=== PATIENT | female | born 1995 | race Caucasian/White ===

== ENCOUNTER → 2021-06-08 | Emergency (ER) | payer OTHER ==
[~2021-06-08] VITALS: Ht 157.5 cm; Wt 68.2 kg
[~2021-06-08] MED LIST: AMOXICILLIN875 MG PO; OMNICEF 300MG300 MG PO; ZITHROMAX Z PA250 MG PO
[2021-06-08 13:32] LABS: MEAN CELL VOLUME 85 fl (80.0-100.0); MEAN CORPUSCULAR HEMOGLOBIN 28 pg (27-31); MEAN CORPUSCULAR HGB CONC 34 g/dl (33.0-37.0); MEAN PLATELET VOLUME 9.1 fl (7.4-10.4); PLATELET COUNT 217 K/mm3 (130-400); RED BLOOD COUNT 3.88 M/mm3 (4.10-5.30); REDCELL DISTRIBUTION WIDTH-CV 12.8 % (11.5-14.5)
[2021-06-08 13:43] LABS: HEMATOCRIT 32.8 % (37.0-47.0)
[2021-06-08 13:44] VITALS: BP 119/79; PULSE 116
[2021-06-08 13:51] LABS: ALBUMIN 3.3 gm/dL (3.5-5.0); CALCIUM 9.2 mg/dL (8.4-10.2); CREATININE, serum 0.65 mg/dL (0.57-1.11); POTASSIUM 3.9 mmol/L (3.5-4.5); TOTAL PROTEIN 6.8 gm/dL (6.2-8.1)
[2021-06-08 13:56] LABS: TROPONIN-I 0.01 ng/mL (0.00-0.033)
[2021-06-08 14:05] LABS: BAND 8 % (0-10); BILIRUBIN,TOTAL 0.4 mg/dL (0.2-1.2); LYMPHOCYTE 6 % (20.0-51.0); NEUTROPHILS 83 % (42.0-75.2); PLATELET ESTIMATE NORMAL (NORMAL)
[2021-06-08 14:06] LABS: ANISOCYTOSIS 1+; MICROCYTOSIS 1+
[2021-06-08 14:06] LABS: COLLECTION METHOD CLEAN CATCH
[2021-06-08 14:49] LABS: PH 7 (5-8); SQUAMOUS EPITHELIAL 0-2 /hpf (0-10); URINE APPEARANCE Clear (CLEAR/HAZY); URINE BACTERIA Rare /hpf (NONE SEEN); URINE BILIRUBIN Negative (NEGATIVE); URINE BLOOD Negative (NEGATIVE); URINE COLOR Colorless (YELLOW); URINE GLUCOSE 1+ (NEGATIVE); URINE KETONE Negative (NEGATIVE); URINE LEUKOCYTE ESTERASE Negative (NEGATIVE); URINE NITRATE Negative (NEGATIVE); URINE PROTEIN(semi-quant) Negative (NEGATIVE); URINE RBC None Seen /hpf (0-2); URINE UROBILINOGEN Negative (NEGATIVE)
[2021-06-08 15:10] VITALS: TEMP 97.4
== END ==
LOC: COL.ER 12:20
PROVIDERS: Emergency Medicine
DX: O99.512 Diseases of the respiratory system complicating pregnancy, second trimester (principal); J06.9 Acute upper respiratory infection, unspecified; O99.112 Other diseases of the blood and blood-forming organs and certain disorders involving the immune mechanism complicating pregnancy, second trimester; D72.829 Elevated white blood cell count, unspecified; Z88.2 Allergy status to sulfonamides; Z3A.15 15 weeks gestation of pregnancy; Z20.822 Contact with and (suspected) exposure to COVID-19

== ENCOUNTER 2021-11-21 07:39 | Inpatient (IN) | payer OTHER ==
[~2021-11-21] VITALS: Ht 157.5 cm; Wt 87.3 kg
[2021-11-23] MEDS ORDERED: WELLBUTRIN XL150 MG PO (11:36)
[2021-11-23] MEDS ORDERED: PRIL40 PO (11:36)
[2021-11-23] MEDS ORDERED: PRENATAL TABLET PO (11:37)
[2021-11-23] MEDS ORDERED: NATURAL IRON65 MG (11:37)
[2021-11-25] VITALS (62 sets, daily range): BP systolic 88–142; BP diastolic 43–95; PULSE 80–142; TEMP 97.8–98.7
[2021-11-25 08:15] LABS: BASO % 0.4 % (0.0-2.0); EOS # 0.2 K/mm3 (0.0-0.7); EOS % 1.9 % (0.0-4.0); GRAN # 6.1 K/mm3 (1.4-6.5); HEMATOCRIT 35.4 % (37.0-47.0); HEMOGLOBIN 11.6 g/dl (12.5-16.0); LYMPH # 1.5 K/mm3 (1.2-3.4); LYMPH % 18.3 % (20.0-51.0); MEAN CELL VOLUME 89 fl (80.0-100.0); MEAN CORPUSCULAR HEMOGLOBIN 29 pg (27-31); MEAN CORPUSCULAR HGB CONC 33 g/dl (33.0-37.0); MEAN PLATELET VOLUME 10.2 fl (7.4-10.4); MONO # 0.4 K/mm3 (0.1-0.6); MONO % 5.3 % (1.7-9.3); PLATELET COUNT 207 K/mm3 (130-400); RED BLOOD COUNT 3.96 M/mm3 (4.10-5.30); REDCELL DISTRIBUTION WIDTH-CV 16.4 % (11.5-14.5)
--- NOTE | 2021-11-25 17:23 | NUR ---
1328 NURSE CALLED INTO ROOM, PATIENT VOMITING. PATIENT CLEANED UP. 1645 SVE 6-7/90/-1 ZROFRAN GIVEN. PATIENT MORE COMFORTABLE AND PLACED INTO EDGAR POSITION.
--- NOTE | 2021-11-25 17:43 | NUR ---
0630 PATIENT ARRIVED ON UNIT, CHANGED INTO PERSONAL GOWN AND PLACED ON MONITORS. VITALS TAKEN. HEART RATE ELEVATED. PATIENT STATED SHE IS NERVOUS. WENT THROUGH EVERY THING AND ANSWERED ALL QUESTIONS FROM PATIENT AND FAMILY. PATIENT STATES SHE FEELS BETTER, PULSE STILL ELEVATED. PATIENT TEARFUL BUT WAS ABLE TO START IV. 0708 PATIENT STATED SHE DIDNT FEEL WELL. BLOOD PRESSURE TAKEN 70/43. PATIENT STATES THIS HAPPENS WHEN SHE IS NERVOUS. 0708 BLOOD PRESSURE BACK TO NORMAL 123/73 STATES SHE IS FEELING MUCH BETTER. CALL VIEAR AND PERSONAL ITEMS WITHIN REACH.
--- NOTE | 2021-11-25 18:06 | NUR ---
1011 ANESTHESIA AT THE BEDSIDE TO TALK ABOUT EPIDURAL AND MEDICATION THAT IS NEEDED BEFORE EPIDURAL FOR BLOOD DISORDER. SECOND IV PLACED FOR MEDICATION. 1023 DEMOPRESSIN STARTED TO RUN OVER 30 MINS. 1030 MD AND DUE DILIGENCE COORDINATOR CHANGED RATE TO RUN OVER 15 MINS. 1054 ANESTHESIA BACK AT THE BEDSIDE FOR EPIDURAL 1056 PATIENT SAT UP ON SIDE OF BED. PULSE OX TRACING MATERNAL HEART RATE. MOMENTS OF MONITOR TRACING MATERNAL HEART RATE DURING EPIDURAL PLACEMENT. 1106 TEST DOSE PATIENT TOLERATED WELL. VITALS Q 5 MIN STARTED. 1130 MD AT . SVE 3/-2. 1132 PATIENT PLACED ON LEFT SIDE WITH PEANUT BALL. 1200 MOHR PLACED. AND PATIENT PLACED ON RIGHT SIDE WITH PEANUT BALL.
--- NOTE | 2021-11-25 18:30 | NUR ---
1230 HEART RATE SHOWING LATE DECELS BLOOD PRESSURE 81/37 1238 EPHEDRINE GIVEN TO PATIENT 1250 2ND DOSE OF EPHEDRINE GIVEN 1253 ANESTHESIA AT THE BEDSIDE 1254 3RD DOSE OF EPHEDRINE GIVEN, FLUIDS INCREASED 1256 BLOOD PRESSURE 105/[address] [facility]. BLOOD PRESSURE BACK TO BASLINE.
--- NOTE | 2021-11-25 18:30 | NUR ---
1829- BEDSIDE REPORT RECEIVED CHARTED, CARE ASSUMED. PT IN LEFT LATERAL WITH STIRRUP, DENIES NEEDS AT THIS TIME. DISCUSSED PLAN FOR ANTIBIOTICS. 1899- PEN G INFUSING ORDERED. PT ASSISTED TO RIGHT LATERAL POSITION. PT EXPERIENCES NAUSEA WITH POSITION CHANGE, SO WILL LET HER RECOVER FROM THAT AND THEN CHECK CERVIX. 1914- NURSE TO BEDSIDE. PT FEELING BETTER. SVE BY THIS NURSE . BLOODY SHOW NOTED ON PERINEAL TOWEL. PERICARE PROVIDED.
--- NOTE | 2021-11-25 19:15 | NUR ---
1914- DR GOODWIN JUST OUT OF SURGERY AND UPDATED ON CURRENT SVE AND POSITION CHANGE. SHE VOICES CONCERN ABOUT SIZE OF BABY. 1939- DR GOODWIN TO BEDSIDE. SVE BY DR GOODWIN 10/100/CAPUT+2. SHE STATES THE CAPUT OF BABY'S HEAD IS +2 AND TO START PUSHING. 1999- MOHR CATHETER REMOVED FOR PUSHING. PERICARE PROVIDED. DISCUSSES PUSHING WITH PT AND FAMILY AND ANSWERED QUESTIONS ABOUT THE PROCESS. AXILLARY TEMP 98.7. 2007- PT POSITIONED IN FOOT PLATES AND BEGINS COACHED PUSHING WITH CONTRACTION. AFTER CONTRACTIONS, NURSE PERFORMS SVE AND NOTES CERVIX TO STILL BE PRESENT ALL THE WAY AROUND BABY'S HEAD, SVE 9/100/0. DR GOODWIN NOTIFIED AT DESK IMMEDIATELY. DR GOODWIN STATES THE CERVIX SHOULD BE REDUCEABLE AND GOES TO BEDSIDE. 2009- DR GOODWIN AT BEDSIDE. HAS PT PUSH WITH THIS CONTRACTION AND PERFORMS SVE DURING PUSHING WHERE SHE MANUALLY PUSHES THE CERVIX AROUND THE BABY'S HEAD. SHE INSTRUCTS NURSE AND PT TO CONTINUE PUSHING WITH CONTRACTIONS. 2021- DR GOODWIN AT BEDSIDE ASSESSING PT PROGRESS. SHE HAS A LENGTHY DISCUSSION WITH PT AND FAMILY AT THIS TIME ABOUT THE POSSIBILITY OF VACUUM DELIVERY. RISKS DISCUSSED AND QUESTIONS ANSWERED. 2034- DR GOODWIN AT BEDSIDE TO ASSESS PT PROGRESS. 2104- DR GOODWIN AT BEDSIDE. STATES PT FEELS HOT TO HER AND SHE THINKS BABY IS TACHYCARDIC. UPDATED ON TEMP AT 1999. DR GOODWIN WANTS ANOTHER TEMP, AXILLARY IT IS 100.3. SHE GIVES VERBAL ORDER FOR ANTIBIOTICS. SHE UPDATES PT AND FAMILY THAT SHE IS NOW CONSIDERING USING A VACUUM DUE TO BABY'S HEART RATE AND MOM'S TEMPERATURE. PT IS AGREEABLE WITH THIS PLAN IF NEEDED. BED IS BROKEN DOWN FOR DELIVERY AND CHARGE AND NURSERY ARE NOTIFIED. PT CONTINUES PUSHING WITH CONTRACTIONS. 2111- DR GOODWIN STATES SHE WILL NOT USE THE VACUUM BECAUSE SHE BELIEVES THE PT WILL BE ABLE TO DELIVER WITHOUT IT IN A COUPLE CONTRACTIONS. 2114- SVE OF VIABLE FEMALE WITH NUCHAL X1, TO MOTHER'S ABDOMEN AND CARE OF NURSERY STAFF. 2117- SPONTANEOUS DELIVERY OF PLACENTA, EXAMINED BY DR GOODWIN, REPAIR IN PROGRESS. INFUSION OF PITOCIN STARTED. 2129- REPAIR COMPLETE. SHIRA PRECISION DEVICES INSPECTOR/TESTER AT BEDSIDE AND DISCONTINUES EPIDURAL. COUNTS CORRECT. PERICARE PROVIDED WITH CLEAN UNDERBUTT PAD AND ICEPACK TO PERINEUM. FEET DOWN FROM FOOTPLATES AND RECOVERY STARTED.
--- NOTE | 2021-11-25 23:00 | NUR ---
2300- PT WORRIED ABOUT VAGINAL BLEEDING. PERIPADS CHANGED AND WEIGHED FOR QBL. PT AND FAMILY REASSURED THAT THE VAGINAL BLEEDING IS SO FAR WITHIN NORMAL LIMITS. PT WANTS TO KNOW IF DR GOODWIN ORDERED LYSTEDA MEDICATION FOR HER BLEEDING DISORDER. INFORMED THEM THERE WAS NO ORDER FOR THE MEDICATION AND THAT THERE WAS NO MENTION OF IT IN DR GOODWIN'S DELIVERY NOTE. PT AND FAMILY ARE WORRIED ABOUT THIS. NURSE INFORMS THEM SHE WILL CLARIFY WITH DR GOODWIN THE NEXT TIME THE IS CALLED. PT AND FAMILY AGREEABLE WITH THIS. 0000- IV TO SALINE LOCK. PT ASSISTED TO SITTING POSITION AND EPIDURAL CATHETER REMOVED CHARTED. PT ASSISTED TO AMBULATE TO BATHROOM, ONLY ABLE TO VOID 150ML OF URINE. PT REASSURED HER BLEEDING IS STILL WITHIN NORMAL LIMITS. PT PERFORMS PERICARE. NORMAL LOCHIA DISCUSSED. CLEAN GOWN, PAD, AND PANTIES PROVIDED. TUCKS PROVIDED. 0015- PT ASSISTED TO WHEELCHAIR AND IS TRANSFERRED TO ROOM 218. BELONGINGS WITH PT. PT ORIENTED TO ROOM AND CALL LIGHTS. PLAN OF CARE DISCUSSED AND QUESTIONS ANSWERED. PT WISHES TO START SOME PAIN MEDICATION AT THIS TIME AND IT WILL BE PROVIDED. 0024- DR GOODWIN IS CALLED CHARTED. NO NEW ORDERS AT THIS TIME.
[2021-11-26 00:30] VITALS: BP 115/60; PULSE 100; TEMP 98.5
[2021-11-26 04:20] VITALS: BP 113/62; PULSE 94; TEMP 97.8
[2021-11-26 07:30] VITALS: BP 104/52; PULSE 87; TEMP 98.3
[2021-11-26 11:30] VITALS: BP 107/59; PULSE 91; TEMP 97.9
[2021-11-26] MEDS ORDERED: PERCOCET 325 MG1 TA2 PO (11:57)
[2021-11-26] MEDS ORDERED: MOTRIN 800800 MG/TAB PO (11:57)
[2021-11-26] MEDS ORDERED: WELLBUTRIN XL300 M1 PO (11:58)
[2021-11-26 16:00] VITALS: BP 118/61; PULSE 91; TEMP 98.3
[2021-11-26 19:40] VITALS: BP 103/58; PULSE 90; TEMP 97.5
[2021-11-27 08:50] VITALS: BP 107/60; PULSE 88; TEMP 97.6
== END 2021-11-27 16:35 | disposition home or self-care (01) | DRG 805 ==
LOC: OB 11-25 06:29 → LDR 11-25 06:29 → OB 11-25 07:39
PROVIDERS: ADMIT Obstetrics & Gynecology
PROC: 10E0XZZ Delivery of Products of Conception, External Approach (ICD-10-PCS; principal; 2021-11-26)
PROC: 0KQM0ZZ Repair Perineum Muscle, Open Approach (ICD-10-PCS; 2021-11-26)
PROC: 10907ZC Drainage of Amniotic Fluid, Therapeutic from Products of Conception, Via Natural or Artificial Opening (ICD-10-PCS; 2021-11-26)
PROC: 3E033VJ Introduction of Other Hormone into Peripheral Vein, Percutaneous Approach (ICD-10-PCS; 2021-11-26)
DX: O99.12 Other diseases of the blood and blood-forming organs and certain disorders involving the immune mechanism complicating childbirth (principal); O41.1230 Chorioamnionitis, third trimester, not applicable or unspecified; Z37.0 Single live birth; D69.1 Qualitative platelet defects; O99.892 Other specified diseases and conditions complicating childbirth; L40.50 Arthropathic psoriasis, unspecified; O99.344 Other mental disorders complicating childbirth; F41.9 Anxiety disorder, unspecified; F32.A Depression, unspecified; O99.824 Streptococcus B carrier state complicating childbirth; O70.1 Second degree perineal laceration during delivery; Z3A.39 39 weeks gestation of pregnancy; Z86.16 Personal history of COVID-19
CPT/HCPCS: J0290; J1580; J2405; J2540; J2590; J2597; J7120

== ENCOUNTER 2021-11-23 10:18 | Outpatient (CLI) | payer OTHER ==
[~2021-11-23] VITALS: Ht 157.5 cm; Wt 86.4 kg
[2021-11-23 11:00] VITALS: BP 109/62; PULSE 118; TEMP 98.7
[2021-11-23] MEDS ORDERED: WELLBUTRIN XL150 MG PO (11:36)
[2021-11-23] MEDS ORDERED: PRIL40 PO (11:36)
[2021-11-23] MEDS ORDERED: PRENATAL TABLET PO (11:37)
[2021-11-23] MEDS ORDERED: NATURAL IRON65 MG (11:37)
--- NOTE | 2021-11-23 11:38 | NUR ---
1030 PATIENT ENTERED ROOM. REPORTED DECREASE MOVEMENT. DENIES ANY LEAKING OF FLUID OR BLEEDING BUT STATED MUCOUS PLUG CAME OUT RECENTLY. 1036 PLACED ON MONITOR AND VITALS TAKEN AND STABLE. ASSESSMENT QUESTIONS ASKED. WHILE DOING ASSESSMENT PATIENT STATED THAT SHE FEELS MOVEMENT NOW. 1122 MD CALLED AND NOTIFED. TRACING CAT 1, FEELING MOVEMENT. STATED PATIENT CAN GO HOME AND PLAN TO COME BACK FOR SCHEDULED INDUCTION ON WEDNESDAY.
[2021-11-23 11:48] VITALS: BP 113/57; PULSE 111; TEMP 98.5
--- NOTE | 2021-11-23 12:13 | NUR ---
PATIENT GIVEN DISCHARGE INSTRUCTIONS, VERBALIZED UNDERSTANDING. WILL COME BACK FOR SCHEDULED INDUCTION ON WEDNESDAY. NO NEEDS OR QUESTIONS. AMBULATED OFF UNIT ALONG WITH MOTHER.
== END 2021-11-23 12:00 | disposition home or self-care (01) ==
LOC: LDRO 10:18
DX: Z34.93 Encounter for supervision of normal pregnancy, unspecified, third trimester (principal); Z3A.39 39 weeks gestation of pregnancy